=== PATIENT | male | born 1945 | race Caucasian/White ===

== ENCOUNTER 2017-12-15 11:30 | Inpatient (IN) ==
--- NOTE | 2017-12-15 08:35 | Discharge Summary ---
<EsperanzakristiCorrine Hemphill - Last Filed: 12/15/17 08:33> Date of Encounter: 12/15/17 - Discharge Diagnosis (1) Arthritis of knee, right Priority: Primary Status: Acute (2) Status post total knee replacement, right Priority: Primary Status: Acute (3) DMII (diabetes mellitus, type 2) Priority: Secondary Status: Chronic Qualifiers: Diabetes mellitus meat trimmer insulin use: unspecified nursing home insulin use status Diabetes mellitus complication status: with unspecified complications Qualified Code(s): E11.8 - Type 2 diabetes mellitus with unspecified complications (4) HTN (hypertension) Priority: Secondary Status: Chronic Qualifiers: Hypertension type: essential hypertension Qualified Code(s): I10 - Essential (primary) hypertension (5) Obesity Priority: Secondary Status: Chronic Qualifiers: Obesity type: due to excess calories Obesity classification: unspecified obesity classification Serious obesity comorbidity presence: unspecified whether serious comorbidity present Qualified Code(s): E66.09 - Other obesity due to excess calories (6) Gout Priority: Secondary Status: Chronic Qualifiers: Gout site: unspecified site Gout etiology: unspecified cause Chronicity: chronic Presence of tophus: without tophus Qualified Code(s): M1A.9XX0 - Chronic gout, unspecified, without tophus (tophi) (7) BPH (benign prostatic hyperplasia) Priority: Secondary Status: Chronic Qualifiers: Lower urinary tract symptom presence: unspecified whether lower urinary tract symptoms present Qualified Code(s): N40.0 - Benign prostatic hyperplasia without lower urinary tract symptoms - Hospital Course Hospital course: Mr. Kirk is a 72 year old male - Time Spent with Patient Total time spent providing and/or coordinating discharge services: - Discharge Medications Home Medications: Allopurinol [Zyloprim] 300 mg PO DAILY 12/15/17 [History] Aspirin Enteric Coated [Aspirin EC] 325 mg PO BID #20 tablet. 12/15/17 [Rx] Aspirin [Adult Aspirin Regimen] 81 mg PO DAILY 12/15/17 [History] Finasteride [Proscar] 5 mg PO DAILY 12/15/17 [History] Gabapentin [Neurontin] 600 mg PO QPM 12/15/17 [History] Lisinopril-HCTZ 20-12.5 [Prinzide 20-12.5] 1 tab PO DAILY 12/15/17 [History] Lovastatin 40 mg PO DAILY 12/15/17 [History] Multivit-Min/FA/Lycopen/Lutein [A Thru Z Select Multivit Tab] 1 tab PO DAILY [History] [place]-3 Acid Ethyl Esters [Lovaza] 2 gm PO BID 12/15/17 [History] OxyCODONE Immed Rel [Roxicodone 5 MG] 5 mg PO Q6HR PRN 7 Days #28 tablet [Rx] Tadalafil [Cialis] 2.5 mg PO DAILY 12/15/17 [History] metFORMIN [Glucophage] 1,000 mg PO BIDWM 12/15/17 [History] Allergies/Adverse Reactions: 3 Allergy/AdvReac Type Severity Reaction Status Date / Time levofloxacin [From Levaquin] Allergy Hives Verified 12/02/17 14:13 meloxicam Allergy Rash Verified 12/02/17 14:13 meperidine [From Demerol] Allergy Rash Verified 12/02/17 14:13 morphine Allergy Rash Verified 12/02/17 14:13 Penicillins Allergy Hives Verified 12/02/17 14:13 Primary care physician: Charisma Myrick, - Patient Status Disposition: Home, Self-Care Condition: Good - Discharge Instructions Follow Up With: Charisma Myrick, CONCRETE STONE FINISHER [Primary Care Provider] - <Tad Washington - Last Filed: 12/16/17 07:51> Orders not resulted at time of discharge: Pending orders 12/15/17 US anesthesia pain block [US] Stat 12/15/17 08:32 XR knee RT limited 1-2V [XR] Routine H/H [Hemoglobin and Hematocrit] [HEME] Routine Date of Encounter: 12/16/17 Time of Encounter: 07:50 - Discharge Diagnosis (1) Morbid obesity with BMI of 40.0-44.9, adult Priority: Secondary Status: Chronic (2) Arthritis of knee, right Priority: Primary Status: Chronic (3) Status post total knee replacement, right Priority: Primary Status: Acute (4) DMII (diabetes mellitus, type 2) Priority: Secondary Status: Chronic Qualifiers: Diabetes mellitus nursing home insulin use: unspecified nursing home insulin use status Diabetes mellitus complication status: with unspecified complications Qualified Code(s): E11.8 - Type 2 diabetes mellitus with unspecified complications (5) HTN (hypertension) Priority: Secondary Status: Chronic Qualifiers: Hypertension type: essential hypertension Qualified Code(s): I10 - Essential (primary) hypertension (6) Gout Priority: Secondary Status: Chronic Qualifiers: Gout site: unspecified site Gout etiology: unspecified cause Chronicity: chronic Presence of tophus: without tophus Qualified Code(s): M1A.9XX0 - Chronic gout, unspecified, without tophus (tophi) (7) BPH (benign prostatic hyperplasia) Priority: Secondary Status: Chronic Qualifiers: Lower urinary tract symptom presence: unspecified whether lower urinary tract symptoms present Qualified Code(s): N40.0 - Benign prostatic hyperplasia without lower urinary tract symptoms - Hospital Course Hospital course: Mr. Kirk is a 72 year old male Status post right total knee replacement The patient had an uneventful postoperative course. They received antibiotics and physical therapy and were discharged in stable condition. There will follow -up in the office in 2 weeks. - Time Spent with Patient Total time spent providing and/or coordinating discharge services: Primary care physician: Charisma Myrick, Labs on day of discharge: Labs from last 24 hours 12/15/17 11:51 POC Glucose 127 H - Patient Status Functional capacity at discharge: uses cane/walker Overall status at discharge: patient is progressing back to baseline
[~2017-12-15 11:30] MED LIST: *HR* Enoxaparin 30 MG/0.3 ML SYRINGE SQ SCH
[2017-12-15] MEDS ORDERED: Ringers Solution, Lactated 1,000 ML IVC SCH ×3 (12:00→16:22)
--- NOTE | 2017-12-15 12:11 | History & Physical Report ---
Date of Encounter: 12/15/17 Time of Encounter: 12:09 24 Hour HP Update - Instructions Instructions: If the History and Physical is less than 30 days old and was completed prior to A.M. admission and or procedure and has NOT been updated on calendar day of procedure please complete this update prior to performing procedure. - Update Patient reports changes in Medical Condition: No Changes in examination, assessment, or condition: No Changes in Medication: No Preop tests/diagnostics Reviewed: Yes Surgery Remains Indicated: Yes Consent for Planned Operative Procedure(s) Verified: Yes - Pre-Operative Checklist Preoperative Checklist Indicated: No Prophylactic Antibiotic Ordered: Yes Is VTE Prophylaxis Indicated?: Yes
[2017-12-15] MEDS ORDERED: Plasma-Lyte A (PH 7.4) 1,000 ML IVC SCH (12:15)
[2017-12-15] MEDS ORDERED: Clindamycin 900 MG/50 ML 900 MG/50 ML IV.SOLN IVPB ONE (12:29)
[2017-12-15] MEDS ORDERED: Lidocaine -MPF 2% 2 ML VIAL ONE ×2 (12:47→12:48)
[2017-12-15] MEDS ORDERED: Propofol 500 MG/50 ML INFUS..BTL ONE (12:47)
[2017-12-15] MEDS ORDERED: *HR* Propofol 200 MG/20 ML VIAL IVP ONE (12:48)
[2017-12-15] MEDS ORDERED: *HR* Midazolam HCl 2 MG/2 ML VIAL ONE (12:52)
[2017-12-15] MEDS ORDERED: *HR* FentaNYL (PF) 100 MCG/2 ML VIAL ONE ×2 (12:52→15:14)
--- NOTE | 2017-12-15 13:22 | Anesthesia Evaluation PreOp ---
Date of Encounter: 12/15/17 Time of Encounter: 13:19 - Past History Planned Operation: R total knee Cardiac History: HTN, Hyperlipidemia Pulmonary History: Other (hx PE in the 1970s) Other Medical History: Diabetes Type II (oral medications only), Other (BMI 41) Anesthesia History: Problems (difficult to intubate via DL; no issues at another hospital with an asleep FOI (a decent candidate for a C-MAC also)) Alcohol Use: none Drug use: none Medications and Allergies Allopurinol [Zyloprim] 300 mg PO DAILY 12/15/17 [History] Aspirin Enteric Coated [Aspirin EC] 325 mg PO BID #20 tablet. 12/15/17 [Rx] Aspirin [Adult Aspirin Regimen] 81 mg PO DAILY 12/15/17 [History] Finasteride [Proscar] 5 mg PO DAILY 12/15/17 [History] Gabapentin [Neurontin] 600 mg PO QPM 12/15/17 [History] Lisinopril-HCTZ 20-12.5 [Prinzide 20-12.5] 1 tab PO DAILY 12/15/17 [History] Lovastatin 40 mg PO DAILY 12/15/17 [History] Multivit-Min/FA/Lycopen/Lutein [A Thru Z Select Multivit Tab] 1 tab PO DAILY [History] [place]-3 Acid Ethyl Esters [Lovaza] 2 gm PO BID 12/15/17 [History] OxyCODONE Immed Rel [Roxicodone 5 MG] 5 mg PO Q6HR PRN 7 Days #28 tablet [Rx] Tadalafil [Cialis] 2.5 mg PO DAILY 12/15/17 [History] metFORMIN [Glucophage] 1,000 mg PO BIDWM 12/15/17 [History] 3 Allergy/AdvReac Type Severity Reaction Status Date / Time levofloxacin [From Levaquin] Allergy Hives Verified 12/02/17 14:13 meloxicam Allergy Rash Verified 12/02/17 14:13 meperidine [From Demerol] Allergy Rash Verified 12/02/17 14:13 morphine Allergy Rash Verified 12/02/17 14:13 Penicillins Allergy Hives Verified 12/02/17 14:13 - Meds/Allergy Pre-op Review Medications Reviewed: Yes Allergies Reviewed: Yes Beta Blockers on Current Med List: No Anesthesia Results - Labs Laboratory Tests 12/02/17 12/02/17 12/02/17 14:25 14:25 14:25 WBC 6.2 Hgb 15.3 Hct 44.7 Plt Count 142 PT 11.1 INR 1.0 APTT 37.2 H BUN 25 H Creatinine 1.05 Est GFR ( Amer) > 60 Est GFR (Non-Af Amer) > 60 BUN/Creatinine Ratio 24 POC Glucose Est Mean Plasma Glucose Hemoglobin A1c 12/02/17 12/15/17 14:25 11:51 WBC Hgb Hct Plt Count PT INR APTT BUN Creatinine Est GFR ( Amer) Est GFR (Non-Af Amer) BUN/Creatinine Ratio POC Glucose 127 H Est Mean Plasma Glucose 134 Hemoglobin A1c 6.3 H - Imaging EKG: report reviewed, image reviewed (SR) Anesthesia Exam Last Vital Signs Temp 98.1 F 12/15/17 11:54 Pulse 76 12/15/17 11:54 Resp 18 12/15/17 11:54 BP 143/91 12/15/17 11:54 Pulse Ox 96 12/15/17 11:54 Weight: 122 kg NPO (# of Hours): > 8 hrs - HEENT Pupil (Motor): Pupils equal, EOMI Mallampati: IV Teeth: Poor dentition Oral Opening: Greater than 3 (short TM distance) - HEALTH PROMOTION EDUCATOR LOC: Oriented - Cardiac Rhythm: Regular Murmur: None - Pulmonary Breath Sounds: bilateral Clear Respiratory Effort: Symmetrical Anesthesia Assess/Plan ASA Score: 3 Modified [place] Scale for Level of Consciousness: Cooperative, oriented, and tranquil Anesthetic Plan: General, Regional Monitoring Plan: Standard Monitors Recovery Plan: PACU
[2017-12-15] MEDS ORDERED: Ondansetron 4 MG/2 ML VIAL ONE (13:32)
[2017-12-15] MEDS ORDERED: Dexamethasone 4 MG/ML VIAL ONE (13:32)
[2017-12-15] MEDS ORDERED: ROPIVACAINE HCL/PF 0.5% 30 ML VIAL ONE (13:43)
[2017-12-15] MEDS ORDERED: Ethanol\\Acetic Acid\\Na Ace\\Ben 1,000 ML IRRIG.SOLN IR ONE (13:44)
[2017-12-15] MEDS ORDERED: *HR* Promethazine 25 MG/ML VIAL IVP PRN (14:45)
--- NOTE | 2017-12-15 14:48 | Anesthesia Procedures ---
Date of Encounter: 12/15/17 Time of Encounter: 13:45 Procedures: Anesthesia - Nerve Block Procedure Date: 12/15/17 Time: 13:45 Allergies/Adv Reactions: multiple see chart Pre-op Diagnosis: right total knee arthritis Surgical Procedure: right total knee replacement Checklist: Correct Patient Identifier, Correct procedure, History checked Correct side: Right Blood Thinner: No Monitor Applied: EKG, BP, Pulse Oximetry Supplemental Oxygen via Nasal Cannula (L/min): 2 Sedation: Versed (mg): 2 Sedation: Fentanyl (mcg): 100 Indication: Post Op Analgesia Pre-op Neuro Deficits: No Block Type: Femoral (ipack ) Catheter placed: No Sterile Technique: Yes Ultrasound used: Yes Anatomy identified: Yes Visual spread of Local: Yes Neuro Stimulation: Yes Nerve Stimulator Range: 0.2 - 0.4 mA Blood on Needle Aspiration: No Smooth Injection of Local: Yes Pain with Injection of Local: No Prep: Chlorhexadine Needle: 21 x 100 mm Stimuplex Local: Ropivacaine (femoral- ropi 0.5% 30ml with 8mg decadron ), Other ( bupivicaine 0.25% 30ml ipack ) Volume (cc): 60 Number of Attempts: 1 Complications: None/effective block Vitals: Vital Signs - Last 8 Hours Temp Pulse Resp BP Pulse Ox 12/15/17 13:56 67 18 117/71 95 12/15/17 13:46 73 18 111/77 96 12/15/17 11:54 98.1 F 76 18 143/91 96 Intake and Output 12/14/17 12/15/17 12/15/17 23:59 07:59 15:59 Other: Weight 121.563 kg Blood Glucose* 127 Patient Weight 12/15/17 23:59 Weight 121.563 kg Comments: per dr. bella request
--- NOTE | 2017-12-15 14:51 | Anesthesia Procedures ---
Date of Encounter: 12/15/17 Time of Encounter: 14:06 Procedures: Anesthesia - Intubation Time out performed: Yes Sedative: Propofol Amount Sedative given: see anesthesia record Paralytic: Succinylcholine (after view of cords ) Laryngoscope: other (c-mac/D-blade) Assist device used: Bougie ET Tube Size: 7.5 ET tube uncuffed: Yes Tube secured depth (cm): 23 Tube secured location: teeth Tube Placement Confirmation: visualized tube passing through cords, equal breath sounds bilaterally, no breath sounds over epigastrium, confirmation by capnometry Patient tolerated procedure: well, no complications Intubation complications: none (SEE ANESTHESIA RECORD FOR DETAILS )
--- NOTE | 2017-12-15 14:53 | Orthopedic Operative Note ---
Date of procedure: 12/15/17 Pre-op diagnosis: Right knee arthritis Post-op diagnosis: same Procedure: Procedure: Right Total knee replacement Estimated blood loss: 200 cc Hardware: Metal and polyethylene replacement. Arthrex Femur: 7 Tibia:6 PS insert: 11 Patella:40 Exam Under anesthesia: Full flexion and extension no instability Procedural Notes: Grade 4 arthritic changes all 3 compartments. Operative procedure: The patient was brought to the operating room and placed on the operating room table. After general anesthesia was administered the operative knee was examined. Findings were noted in the exam under anesthesia. The operative extremity was prepped and draped in sterile surgical fashion. The patient received IV antibiotics prior to skin incision. A standard midline incision was made centered over the patella. The incision was made through the skin and subcutaneous tissue. A medial parapatellar tendon approach was performed. Care was taken to preserve tissue along the medial aspect of the patella. And to protect the patella tendon. The deep MCL was released off the medial tibia. The infra patella fat pad was excised. Knee was brought into flexion. Patient noted to have grade 4 arthritic changes all 3 compartments. The entry hole was made for the intramedullary femoral guide. The guide was seated in 6 degrees of valgus. Anterior cut was made followed by the distal cut. The ACL the PCL the medial and the lateral menisci were excised. The tibia was subluxed forward. The entry hole was made for the intramedullary tibial guide. Guide was seated to resect 2 mm off the more abnormal side. The knee was brought into flexion the distal femur was sized to a 7. The femoral guide was seated, the anterior cut was made followed by the posterior condylar cut, followed by the chamfer cuts. The finishing guide was seated the box cut was made and the lug holes were drilled. The tibia was sized to a 6, the tibial tray was seated and prepared with the large drill followed by the fin cutter. Trial reduction revealed full extension no varus valgus instability with the appropriate 11 PS Carrie. The patella was everted and cut was made at the level of the insertion of the quadriceps and patella tendon. The patella was sized to a 40 the guide was seated and the lug holes are drilled. Trial reduction revealed excellent patella tracking. All trial components were removed all bony surfaces were irrigated. The tibia was cemented first followed by the femur. The 11 PS Carrie was seated and the knee was brought into full extension. The patella was cemented and held in place with the patellar holding clamp. After the cement had hardened, the knee sat for 2 minutes with a antibacterial solution. The knee was then irrigated out with 2 L of pulse irrigation. The extensor mechanism was closed with #2 FiberWire suture and #2 PDS suture. The subcutaneous tissue was then irrigated and closed deep with #1 PDS suture superficially with 0 PDS suture and skin was closed with skin sangita. The patient was then placed in a sterile dressing and a postoperative brace extubated and transferred to recovery room in stable condition. Anesthesia: GETA Surgeon: Tad Washington Was there an assistant corporation counsel present: No Estimated blood loss (cc): 200 Condition: stable Disposition: PACU
[2017-12-15] MEDS: *HR* HYDROmorphone (PF) 1 MG/ML SYRINGE IVP PRN ×2 (15:38→15:45)
[2017-12-15 16:07] LABS: Hematocrit 42.1 % (37.5-50.1); Hemoglobin 14.3 g/dL (12.9-16.9)
--- NOTE | 2017-12-15 16:07 | Anesthesia Evaluation Post Op ---
Date of Encounter: 12/15/17 Time of Encounter: 16:07 - Vital Signs Vital Signs: Last Vital Signs Temp 97.9 F 12/15/17 15:33 Pulse 78 12/15/17 15:53 Resp 12 12/15/17 15:53 BP 117/79 12/15/17 15:53 Pulse Ox 93 12/15/17 15:53 - Lungs Lungs: Clear Ascult./Percussion - Airway Airway: Non-obstructed - Cardiovascular Regular Rate - Mental Status Mental Status: Alert & Oriented, Answers Appropriately - Pain Pain Scale: 5 - Nausea Vomiting Nausea Vomiting: Not Present - Hydration Hydration: NPO - Discharge PostOp Status: Transfer Patient to floor
[2017-12-15] MEDS ORDERED: Ondansetron 4 MG/2 ML VIAL IVP PRN (16:22)
[2017-12-15] MEDS ORDERED: *HR* Dextrose 50 % in Water (Syg) 50 ML SYRINGE IVP PRN (16:22)
[2017-12-15] MEDS ORDERED: Temazepam 15 MG CAPSULE PO PRN (16:22)
[2017-12-15] MEDS ORDERED: MOM Conc 10 ML UD.LIQ PO PRN (16:22)
[2017-12-15] MEDS ORDERED: traMADol 50 MG TABLET PO PRN (16:22)
[2017-12-15] MEDS ORDERED: Sennosides 8.6 MG TABLET PO PRN (16:22)
[2017-12-15] MEDS ORDERED: D5% in Water 1,000 ML IVC PRN (16:22)
[2017-12-15] MEDS ORDERED: *HR* OxyCODONE/APAP 5/325 TABLET PO PRN (16:22)
[2017-12-15] MEDS ORDERED: Naloxone 0.4 MG/ML INJ IVP PRN (16:22)
[2017-12-15] MEDS ORDERED: Dextrose Gel 15 GM/37.5 ML TUBE PO PRN ×2 (16:22)
[2017-12-15] MEDS: *HR* Metformin 500 MG TABLET PO SCH (17:04)
[2017-12-15] MEDS: *HR* OxyCODONE Immed Rel 5 MG TABLET PO PRN (17:05)
[2017-12-15] MEDS: *HR* Enoxaparin 30 MG/0.3 ML SYRINGE SQ SCH (17:05)
[2017-12-15] MEDS: Insulin LISPRO 300 UNITS/3 ML VIAL SQ SCH (17:11)
[2017-12-15] MEDS ORDERED: Gabapentin 300 MG CAPSULE PO SCH (18:00)
[2017-12-15] MEDS ORDERED: Insulin LISPRO 300 UNITS/3 ML VIAL SQ SCH (21:00)
[2017-12-15] MEDS: Clindamycin 900 MG/50 ML 900 MG/50 ML IV.SOLN IVPB SCH (21:24)
[2017-12-15] MEDS: Omega-3 Acid Ethyl Esters [Lovaza] 2 GM PO SCH (21:24)
[2017-12-16] MEDS: Clindamycin 900 MG/50 ML 900 MG/50 ML IV.SOLN IVPB SCH (05:32)
[2017-12-16] MEDS: *HR* OxyCODONE Immed Rel 5 MG TABLET PO PRN ×2 (05:33→11:18)
[2017-12-16 05:46] LABS: Hematocrit 36.7 % (37.5-50.1); Hemoglobin 12.9 g/dL (12.9-16.9)
[2017-12-16] MEDS: *HR* Enoxaparin 30 MG/0.3 ML SYRINGE SQ SCH (05:49)
[2017-12-16 06:01] LABS: BUN/Creatinine Ratio 19 (6-26); Blood Urea Nitrogen 20 mg/dL (8-23); Calcium 8.8 mg/dL (8.6-10.3); Carbon Dioxide 23 mEq/L (23-29); Chloride 104 mEq/L (98-107); Glucose 173 mg/dL (70-105); Osmolality,Calculated 285 (280-300); Potassium 4.2 mEq/L (3.5-5.1); Sodium 134 mEq/L (136-145); eGFR For African Americans > 60 (> 60); eGFR For Non-African Americans > 60 (> 60)
--- NOTE | 2017-12-16 07:51 | Orthopedics Progress Note ---
Date of Encounter: 12/16/17 Time of Encounter: 07:51 - Assessment and Plan (1) Morbid obesity with BMI of 40.0-44.9, adult Current Visit: Yes Status: Chronic (2) Arthritis of knee, right Current Visit: No Status: Chronic (3) Status post total knee replacement, right Current Visit: No Status: Acute (4) DMII (diabetes mellitus, type 2) Current Visit: No Status: Chronic Qualifiers: Diabetes mellitus oysterman insulin use: unspecified oysterman insulin use status Diabetes mellitus complication status: with unspecified complications Qualified Code(s): E11.8 - Type 2 diabetes mellitus with unspecified complications (5) HTN (hypertension) Current Visit: No Status: Chronic Qualifiers: Hypertension type: essential hypertension Qualified Code(s): I10 - Essential (primary) hypertension (6) Gout Current Visit: No Status: Chronic Qualifiers: Gout site: unspecified site Gout etiology: unspecified cause Chronicity: chronic Presence of tophus: without tophus Qualified Code(s): M1A.9XX0 - Chronic gout, unspecified, without tophus (tophi) (7) BPH (benign prostatic hyperplasia) Current Visit: No Status: Chronic Qualifiers: Lower urinary tract symptom presence: unspecified whether lower urinary tract symptoms present Qualified Code(s): N40.0 - Benign prostatic hyperplasia without lower urinary tract symptoms Subjective Interval history: Patient was seen this morning doing well without complaints. Afebrile vital signs stable. Operative extremity: Neurovascularly intact Dressing clean dry and intact Calves nontender Assessment and plan: Continue with postoperative care Hemoglobin 12.9 discharged today Objective Vital signs: Vital Signs Temp Pulse Resp BP Pulse Ox 12/16/17 06:48 98.6 F 82 18 103/60 93 12/16/17 06:02 98.8 F 85 15 138/84 95 12/15/17 23:38 98.1 F 98 16 132/89 98 12/15/17 19:27 99.2 F 87 16 110/75 93 12/15/17 18:36 98.0 F 84 15 112/68 93 12/15/17 17:30 97.9 F 85 15 126/80 93 12/15/17 17:00 97.9 F 78 14 133/83 94 12/15/17 16:40 96 12/15/17 16:30 97.8 F 73 15 133/86 96 12/15/17 16:03 97.4 F L 72 13 124/88 96 12/15/17 15:53 78 12 117/79 93 12/15/17 15:43 79 13 114/77 95 12/15/17 15:33 97.9 F 89 14 125/98 98 12/15/17 13:56 67 18 117/71 95 12/15/17 13:46 73 18 111/77 96 12/15/17 11:54 98.1 F 76 18 143/91 96 Intake and Output 12/15/17 12/15/17 12/16/17 15:59 23:59 07:59 Intake Total 50 / 50 Output Total 200 / 200 Balance -200 / -200 50 / 50 Intake: IV Fluids 50 / 50 Cleocin Premix 900 MG/50 ML 900 50 / 50 mg In 50 ml @ 50 mls/hr IVPB Q8H EMILY Rx#:[id number] Output: Estimated Blood Loss 200 / 200 Other: # Voids 1 1 Weight 121.563 kg Blood Glucose* 117 261 193 - Labs CBC & BMP: 12/16/17 04:48 12/16/17 04:48 Labs: Abnormal lab results Hct 36.7 % (37.5-50.1) L 12/16/17 04:48 Sodium 134 mEq/L (136-145) L 12/16/17 04:48 Glucose 173 mg/dL (70-105) H 12/16/17 04:48 POC Glucose 150 (58-89) H 12/15/17 17:06 - VTE Documentation of Mechanical Device: Venous foot pump, device Consult Discharge Plan - Plan Referrals: Charisma Myrick, CURING MACHINE OPERATOR [Primary Care Provider] -
[2017-12-16] MEDS: *HR* Metformin 500 MG TABLET PO SCH (08:05)
[2017-12-16] MEDS: Omega-3 Acid Ethyl Esters [Lovaza] 2 GM PO SCH (08:05)
[2017-12-16] MEDS: Insulin LISPRO 300 UNITS/3 ML VIAL SQ SCH ×2 (08:06→12:37)
[2017-12-16] MEDS ORDERED: Finasteride 5 MG TABLET PO SCH (09:00)
[2017-12-16] MEDS ORDERED: Multivit/Ca/Min/Fe/FA 1 TAB TABLET PO SCH (09:00)
[2017-12-16] MEDS ORDERED: Lisinopril-HCTZ 20-12.5mg TABLET PO SCH (09:00)
[2017-12-16] MEDS ORDERED: Tadalafil [Cialis] 2.5 MG PO SCH (09:00)
[2017-12-16] MEDS ORDERED: Aspirin Enteric Coated 81 MG Tablet PO SCH (09:00)
[2017-12-16 10:53] VITALS: BP 110/70
== END 2017-12-16 13:29 | disposition home or self-care (01) | DRG 470 ==
LOC: SAMDAY 11:30 → 3NENU 16:42
PROVIDERS: ADMIT Orthopaedic Surgery; ATTEND Orthopaedic Surgery